=== PATIENT | male | born 1995 | race African-American/Black ===

== ENCOUNTER 2024-02-18 14:40 | Emergency (ER) | payer OTHER, SELFPAY ==
[2024-02-18 14:47] VITALS: BP 128/74; PULSE 75; RESP 18; TEMP 36.8; O2SAT 100; BMI 25.8
--- NOTE | 2024-02-18 15:03 | DI.US.S_ITS ---
PROCEDURE: US PERIPH VENOUS LOW EXTREM RT INDICATIONS: CALF PAIN, SWELLING TECHNIQUE: Real-time imaging, as well as color and pulse Doppler interrogation, were performed of the lower extremity deep veins from the inguinal ligament to the popliteal fossa, with documentation of the visualized calf veins. COMPARISON: None. FINDINGS: The common femoral, femoral, popliteal, and the visualized calf veins are normally compressible, and free of intraluminal thrombus. Color and pulse Doppler demonstrate normal phasic intraluminal flow. There is normal augmentation response to distal compression maneuver. IMPRESSION: Negative right lower extremity duplex venous ultrasound for DVT. Dictated by: Omar Choi M.D. on 02/18/2024 at 16:21 Approved by: Omar Choi M.D. on 02/18/2024 at 16:21
--- NOTE | 2024-02-18 15:10 | ED.EXTPRO ---
HPI - Extremity Problem <AYANNA Champagne - Last Filed: 02/18/24 16:37> General Chief complaint: Extremity Problem,Nontraumatic Stated complaint: pain R calf pos. blood clot PCP ref Time Seen by Provider: 02/18/24 14:53 Source: patient Mode of arrival: Ambulatory History of Present Illness HPI Narrative: 28-year-old male, active duty , presents to the emergency department with right calf swelling and pain x3 days. Patient had physical therapy, working on strengthening bilateral knees, and woke up the next day with right calf swelling and pain. Patient denies any shortness of breath or chest pain. Patient was sent to the emergency department to rule out a DVT. No previous history of DVT, recent prolonged sitting or air travel. Related Data Allergies Allergy/AdvReac Type Severity Reaction Status Date / Time No Known Drug Allergies Allergy Verified 02/18/24 14:47 Review of Systems <AYANNA Champagne - Last Filed: 02/18/24 16:37> Review of Systems Narrative: Narrative: See HPI. GENERAL: Denies chills, fatigue, fever, sweats. HEENT: Denies sinus pain, ear pain, sore throat, difficulty swallowing, dizziness. RESPIRATORY: Denies dyspnea, cough, wheezing, sputum. CARDIOVASCULAR: Denies chest pain, palpitations, edema. GASTROINTESTINAL: Denies nausea, vomiting, abdominal pain, diarrhea, constipation. : Denies dysuria, frequency, incontinence, hematuria, urinary retention, flank pain. MSK: Denies weakness, joint pain, or bony pain. Endorses right calf swelling and pain. SKIN: Denies rash, skin lesions, or pruritis. NEUROLOGIC: Denies weakness, dizziness, headache, numbness, confusion. PSYCHIATRIC: No concerning psychosocial issues. Patient History <AYANNA Champagne - Last Filed: 02/18/24 16:37> Social History Smoking Status: Never smoker Smoking Status: Never smoker Substance Use Type: does not use Exam <AYANNA Champagne - Last Filed: 02/18/24 16:37> Narrative Exam Narrative: Exam Narrative: GENERAL: This is a well-nourished, well-developed patient, in no acute distress. HEAD: Atraumatic. Normocephalic. EYES: Pupils equal round and reactive. No scleral icterus, injection or drainage. ENT: Nose without bleeding, purulent drainage. Airway patent. CARDIOVASCULAR: Regular rate and rhythm without murmurs, peripheral pulses intact, cap refill <2 sec. RESPIRATORY: Breath sounds equal and clear bilaterally. No wheezes, rales, or rhonchi. No cough. No increased respiratory effort. No accessory muscle use. MSK: Moves all extremities. Normal range of motion, no clubbing or edema. Neurovascularly intact. Left ankle and calf measurements:26 &37.2 cm. Right ankle and calf measurements: 28 and 40.5 cm. There is no popliteal fullness. Normal sensation and pulses. NEURO: A&O x 3. SKIN: Warm, dry, no rashes or lesions noted. Initial Vital Signs Initial Vital Signs: Vital Signs Temperature 98.3 F 02/18/24 14:47 Pulse Rate 75 02/18/24 14:47 Respiratory Rate 18 02/18/24 14:47 Blood Pressure 128/74 02/18/24 14:47 Pulse Oximetry 100 02/18/24 14:47 Oxygen Delivery Method Room Air 02/18/24 14:47 Reviewed <Stephane Owens DO - Last Filed: 02/18/24 16:42> Initial Vital Signs Initial Vital Signs: Vital Signs Temperature 98.3 F 02/18/24 14:47 Pulse Rate 75 02/18/24 14:47 Respiratory Rate 18 02/18/24 14:47 Blood Pressure 128/74 02/18/24 14:47 Pulse Oximetry 100 02/18/24 14:47 Oxygen Delivery Method Room Air 02/18/24 14:47 Scores <AYANNA Champagne - Last Filed: 02/18/24 16:37> eLslye Criteria for DVT Active Cancer (Treatment within 6 months): No Bedridden recently >3 days or major surgery within 4 weeks: No Calf Swelling >3cm compared to other leg: Yes Collateral (nonvericose) superficial veins present: No Entire leg swollen: No Localized tenderness along the deep vein system: No Pitting edema, confined to symtomatic leg: No Paralysis, paresis, or recent plaster immobilization of ext: No Previously documented DVT: No Alternative dx to DVT as likely or more likely: Yes Leslye criteria for DVT: -1 <DO Lobo Rose Last Filed: 02/18/24 16:42> Leslye Criteria for DVT Wells' criteria for DVT: -1 Course <AYANNA Champagne - Last Filed: 02/18/24 16:37> Orders Ordered: ED Orders 02/18/24 15:03 US periph venous low extrem rt Stat Vital Signs Vital signs: Vital Signs - 8 hr 02/18/24 14:47 02/18/24 15:50 Temperature 98.3 F Pulse Rate 75 Pulse Rate [Right Dorsalis Pedis] 77 Respiratory Rate 18 Blood Pressure 128/74 Pulse Oximetry 100 Oxygen Delivery Method Room Air <Stephane Owens DO - Last Filed: 02/18/24 16:42> Orders Ordered: ED Orders 02/18/24 15:03 US perip venous low extrem rt Stat Vital Signs Vital signs: Vital Signs - 8 hr 02/18/24 14:47 02/18/24 15:50 Temperature 98.3 F Pulse Rate 75 Pulse Rate [Right Dorsalis Pedis] 77 Respiratory Rate 18 Blood Pressure 128/74 Pulse Oximetry 100 Oxygen Delivery Method Room Air MDM - Extremity (Nontraumatic) <AYANNA Champagne - Last Filed: 02/18/24 16:37> Differential Diagnosis Differential diagnosis: Likely cellulitis, superficial thrombophlebitis and deep vein thrombosis of lower extremity Imaging Data US - DVT: Radiologist's Impression: [place] [address] Ultrasound Report Signed Patient: Royer Frank MR#: [id number] : 1995 Acct:[id number] Age/Sex: 28 / M Date of Service: 02/18/24 Loc: ED Accession Number: [id number] Procedure: US periph venous low extrem rt Ordering Provider: Stephane Gannon PROCEDURE: US PERIPH VENOUS LOW EXTREM RT INDICATIONS: CALF PAIN, SWELLING TECHNIQUE: Real-time imaging, as well as color and pulse Doppler interrogation, were performed of the lower extremity deep veins from the inguinal ligament to the popliteal fossa, with documentation of the visualized calf veins. COMPARISON: None. FINDINGS: The common femoral, femoral, popliteal, and the visualized calf veins are normally compressible, and free of intraluminal thrombus. Color and pulse Doppler demonstrate normal phasic intraluminal flow. There is normal augmentation response to distal compression maneuver. IMPRESSION: Negative right lower extremity duplex venous ultrasound for DVT. Dictated by: Omar Choi M.D. on 02/18/2024 at 16:21 Approved by: Omar Choi M.D. on 02/18/2024 at 16:21 [facility] Narrative Medical decision making narrative: 28-year-old male with right calf swelling and pain. Assessment was not overly concerning with a wells score of -1. Ultrasound obtained and revealed negative DVT. Suspect symptoms may be from over strenuous physical therapy. Discussed plan of care and worsening symptoms that would necessitate a return visit to the emergency department. Patient and spouse verbalized understanding and was agreeable to course of action. Discharge Plan Departure Patient Disposition: Home Clinical Impression: Lower extremity edema Activity Restrictions/Additional Instructions: *You have been diagnosed with right lower leg swelling. It was a pleasure meeting you today. I am happy to say that your ultrasound was negative and you do not have a deep vein thrombosis of your right leg. Please keep an eye on this, and for any worsening symptoms that include intolerable pain, shortness of breath, chest pain, etc. please return to the emergency room immediately. Otherwise, please follow-up with your family doctor to inform them of your visit. *What to do: *Please continue to take your regular medications as directed. [ ] New medication prescriptions sent to your pharmacy: [ ] [ ] New medication written as a paper prescription [x ] No new medications given *Please follow up with your primary care provider in 2-3 days, call for an appointment. Let them know you were seen in the Emergency Department and that we ask that you be seen in follow up. We will electronically transmit a record of today's note if your PCP is in our system *If you do not have a primary care provider please contact the [facility] Resource line at [phone]. They will ask some questions about your medical history and help get you set up with a doctor in the community. ? Return to ER if you should have any new, worsening or concerning symptoms, such as worsening pain, severe headache, confusion, chest pain, difficulty breathing, fever greater than 101 F, shaking chills, persistent vomiting to the point that you cannot drink fluids, or other new or worsening symptoms. Referrals: Miscellaneous,Doctor, [Primary Care Provider] - Stand Alone Forms: Patient Portal/API ED Sign-out <Stephane Lanker, DO - Last Filed: 02/18/24 16:42> Cosign ED Attending Cosignature Attestation: Dr Owens Co-Sign Statement: I was available for consultation during this patient's emergency department visit. This chart is signed by myself for administrative purposes only. I did not have direct contact with this patient during this visit. They were seen independently by the APC.
[2024-02-18 15:50] VITALS: PULSE 77
== END 2024-02-18 16:47 | disposition home or self-care (01) ==
PROVIDERS: Emergency Provider Registered Nurse
DX: R60.0 Localized edema (principal)
CPT/HCPCS: 93971; 99283